=== PATIENT | male | born 1955 | race Asian ===

== ENCOUNTER 2018-10-13 09:11 | Day surgery (SDC) | payer OTHER ==
[~2018-10-13] VITALS: Ht 167.6 cm; Wt 75.5 kg
[2018-10-13] MEDS ORDERED: LOSARTAN PO (10:47)
[2018-10-13] MEDS ORDERED: LIPITOR PO (10:47)
[2018-10-13] MEDS ORDERED: METFORMIN PO (10:47)
[2018-10-13] MEDS ORDERED: FINASTERIDE PO (10:47)
[2018-10-13 10:48] VITALS: Ht 167.6 cm; Wt 75.5 kg
[2018-10-13] MEDS ORDERED: FENTAnyl 50 MCG/ML VIAL ONE (16:02)
[2018-10-13] MEDS ORDERED: MIDAZOLAM 1 MG/ML 2 ML INJ ONE ×2 (16:02)
== END 2018-10-13 15:20 | disposition home or self-care (01) ==
LOC: GIL 09:11
PROVIDERS: ATTEND Internal Medicine Gastroenterology
DX: Z12.11 Encounter for screening for malignant neoplasm of colon (principal); K64.8 Other hemorrhoids; D12.5 Benign neoplasm of sigmoid colon; K21.9 Gastro-esophageal reflux disease without esophagitis; I10 Essential (primary) hypertension; E11.9 Type 2 diabetes mellitus without complications
CPT/HCPCS: 43239; 45380; 45385; 82962; 88305; J2250; J3010; Z7610